=== PATIENT | male | born 1965 | race Caucasian/White ===

== ENCOUNTER 2023-10-17 17:48 | Emergency (ER) | payer MEDICAID, SELFPAY ==
[2023-10-17] VITALS (15 sets, daily range): BP systolic 121–168; BP diastolic 78–110; PULSE 72–168; RESP 22; TEMP 36.6; O2SAT 95–100; BMI 19.5
--- NOTE | 2023-10-17 17:54 | ED_ITS ---
HPI - General Adult General Date Seen: 10/17/23 Chief complaint: Arrhythmia/Palpitations Stated complaint: low bp Time Seen by Provider: 10/17/23 17:52 History of Present Illness HPI narrative: This is a very pleasant 58-year-old male who presents to the ER today with his friend for evaluation of funny heartbeats and concerned that his blood pressure is either too high or too low. Due to patient smokes tobacco and marijuana. He never drinks alcohol. He thin ks some itself is generally healthy and never goes to the doctor. He does not have health insurance. He does not know of any other previous medical history. Does not really sound like he has had checkups but he has never been diagnosed with hypertension, heart disease, arrhythmias, asthma, sleep apnea, kidney or liver disease or any other problems. He does not take any medications. No known drug allergies. He reports that he had an episode a week or to her 3 ago where his heart was pounding and beating in his chest. He felt like his blood pressure might be too high. He had an at home blood pressure cuff in measured it. He says it was higher than normal. He cooled his blood pressure and thought that he might have ?stage II hypertension?. For the past few days his heart has been giving him trouble where he can feel it beating in his chest. It sounds like it has been most of the time for the past couple of days but it does sound like sometimes it goes away. No clear pattern or trigger. He is not actually having any chest pain. No dizziness or fainting. No shortness of breath. No cough. No fever. No swelling in his legs. Today he measures blood pressure and it was again high. His pulse rate was apparently high too. His friend convinced him to come to the ER. Related Data Home Medications Medication Instructions Recorded Confirmed No Known Home Medications 10/17/23 10/17/23 Previous Rx's Medication Instructions Recorded apixaban 5 mg tablet (Eliquis) 5 mg PO BID #60 tabs 10/17/23 metoprolol tartrate 25 mg tablet 25 mg PO BID #60 tabs 10/17/23 Allergies Allergy/AdvReac Type Severity Reaction Status Date / Time No Known Drug Allergies Allergy Verified 10/17/23 18:29 Exam Narrative: Exam Narrative: Constitutional: Appears well-developed and well-nourished. Slender. Alert. Conversant. Non toxic. HENT: Head: Atraumatic. Nose: Nose normal. Mouth/Throat: Oral mucosa is clear and moist. no trismus. Pharynx normal. Tonsils symmetric. No tonsillar enlargement, erythema, or exudate. Eyes: Conjunctivae normal. EOM normal. Pupils equal, round, and reactive to light. No scleral icterus. Neck: Normal range of motion. Neck supple. No tracheal deviation present. No JVD Cardiovascular: Tachycardic, irregularly irregular rhythm. No gallop. No friction rub. No murmur heard. Symmetric radial and PT artery pulses Pulmonary/Chest: Effort normal. No stridor. No respiratory distress. No wheezes. No rales. No rhonchi . No tenderness. Abdominal: Soft. Bowel sounds normal. No distension. No mass. No tenderness. No rebound. No guarding. Musculoskeletal: RUE: Normal range of motion. No tenderness. No deformity LUE: Normal range of motion. No tenderness. No deformity RLE: Normal range of motion. No edema. No tenderness. No deformity LLE: Normal range of motion. No edema. No tenderness. No deformity. Endocrine: No thyromegaly Neurological: Alert and oriented to person, place, and time. Normal strength. CN II-VII intact. No sensory deficit. GCS eye subscore is 4. GCS verbal subscore is 5. GCS motor subscore is 6. Normal coordination Skin: Skin is warm and dry. No rash noted. No pallor. Normal capillary refill. Psychiatric: Normal mood. Normal affect. Const: Vital Signs, click to edit/add: Vital Signs - 24 hr 10/17/23 17:54 10/17/23 18:13 10/17/23 18:14 Temperature 97.8 F Pulse Rate 149 H 145 H Pulse Rate [Pulse Oximeter] 123 H Respiratory Rate 22 Blood Pressure 121/110 H Blood Pressure [Ri ght Upper Arm] 168/78 H Pulse Oximetry 97 98 95 Oxygen Delivery Me thod Room Air 10/17/23 18:15 10/17/23 18:17 10/17/23 18:22 Temperature Pulse Rate 121 H 168 H 106 H Pulse Rate [Pulse Oximeter] Respiratory Rate Blood Pressure 156/99 H 121/93 H Blood Pressure [Ri ght Upper Arm] Pulse Oximetry 97 98 99 Oxygen Delivery Me thod 10/17/23 18:24 10/17/23 18:30 10/17/23 18:32 Temperature Pulse Rate 108 H 136 H 86 Pulse Rate [Pulse Oximeter] Respiratory Rate Blood Pressure 137/89 136/93 H Blood Pressure [Ri ght Upper Arm] Pulse Oximetry 99 98 96 Oxygen Delivery Me thod 10/17/23 18:33 10/17/23 19:03 10/17/23 19:05 Temperature Pulse Rate 88 76 81 Pulse Rate [Pulse Oximeter] Respiratory Rate Blood Pressure 133/96 H Blood Pressure [Ri ght Upper Arm] Pulse Oximetry 96 98 96 Oxygen Delivery Me thod 10/17/23 19:06 10/17/23 19:15 10/17/23 19:17 Temperature Pulse Rate 78 72 79 Pulse Rate [Pulse Oximeter] Respiratory Rate Blood Pressure 150/82 H Blood Pressure [Ri ght Upper Arm] Pulse Oximetry 98 100 98 Oxygen Delivery Me thod Course Vital Signs Vital signs: Initial Vital Signs Temperature 97.8 F 10/17/23 17:54 Temperature Source Temporal Artery Scan 10/17/23 17:54 Pulse Rate 123 H 10/17/23 17:54 Respiratory Rate 10/17/23 17:54 Blood Pressure 168/78 H 10/17/23 17:54 Blood Pressure Mean 108 H 10/17/23 17:54 Pulse Oximetry 97 10/17/23 17:54 Oxygen Delivery Method Room Air 10/17/23 17:54 Vital Signs Temperature 97.8 F 10/17/23 17:54 Pulse Rate 123 H 10/17/23 17:54 Respiratory Rate 10/17/23 17:54 Blood Pressure 168/78 H 10/17/23 17:54 Pulse Oximetry 97 10/17/23 17:54 Oxygen Delivery Method Room Air 10/17/23 17:54 Temperature 97.8 F 10/17/23 17:54 Pulse Rate 79 10/17/23 19:17 Respiratory Rate 10/17/23 17:54 Blood Pressure 150/82 H 10/17/23 19:17 Pulse Oximetry 98 10/17/23 19:17 Oxygen Delivery Method Room Air 10/17/23 17:54 Medications Administered Medications: Generic Name Dose Route Start Last Admin Trade Name Freq PRN Reason Stop Dose Admin Diltiazem HCl 120 mg 10/18/23 09:00 10/17/23 19:12 Diltiazem 120 Mg Cap.Er.24h PO 120 mg DAILY MARNIE Administration Discontinued Medications Generic Name Dose Route Start Last Admin Trade Name Roro ORELLANAN Reason Stop Dose Admin Diltiazem HCl 10 mg 10/17/23 18:29 10/17/23 18:13 Diltiazem 5 Mg/Ml Inj IVP 10/17/23 18:30 10 mg ONCE ONE Administration Diltiazem HCl 10 mg 10/17/23 18:30 10/17/23 18:20 Diltiazem 5 Mg/Ml Inj IVP 10/17/23 18:31 10 mg ONCE ONE Administration Sodium Chloride 1,000 mls @ 1,000 mls/hr 10/17/23 18:30 10/17/23 18:50 0.9 % Sodium Chloride 1000 Ml IV 10/17/23 19:29 Infused .Q1H MARNIE Infusion Medical Decision Making MDM Narrative Medical decision making narrative: This patient presents for evaluation of palpitations and concerned that his blood pressure might be too high. Initial ECG shows atrial fibrillation with rapid ventricular response. Patient by history it sounds like this is been going on at least a few days but probably intermittently for a few weeks or longer . Without a clear time of onset in the last 48 hours this would not be a safe patient for direct electrical cardioversion. We opted for rate control. We administered 2 doses of diltiazem 10 mg IV and with that he had improvement in his rate. He subsequently started having runs of sinus rhythm and then ultimately converted and maintained sinus rhythm here in the ER. Repeat EKG confirms sinus rhythm and shows no dysrhythmogenic abnormality such as WPW, prolonged QT, Brugada syndrome, and no ischemia. Workup does not show any evidence for cardiac ischemia. A broad differential diagnosis was considered including SVT, Atrial fibrillation, ventricular arrhythmia, thyroid disease, acute electrolyte abnormality, drugs/medications, caffeine intake or other stimulants, medication side effect, anemia, heart disease, PE, among others. He is now asymptomatic after he converted back to sinus rhythm. would not hospitalize. Discussed with patient and the patient is in agreement. He will need medications for rate control. Discussed with the on-call solar photovoltaic installer for [facility]. He would recommend metoprolol short-acting , twice daily. His chads 2 Vasc score is 0 which puts him in a lower risk category for stroke. In discussion with Cardiology they still would recommend 1 month of anticoagulation since he may have a tachycardia induced cardiomyopathy which would put him at risk for stroke. Cardiology says that starting warfarin at this time would likely not be beneficial. They would recommend Eliquis. If the patient has not able to afford Eliquis, cardiology would recommend aspirin be initiated until he has his cardiology appointment. Should see cardiology as soon as possible, ideally within 1-2 weeks. Return precautions reviewed. Questions answered with pt, son (phone), and neighbor. Rx eliquis 5mg BID Rx metoprolol 25mg PO BID Lab Data Labs: Lab Results 10/17/23 10/17/23 Range/Units 18:30 18:32 WBC 15.19 H (4.50-11.00) K/uL RBC 5.89 (4.30-5.90) m/uL Hgb 17.9 H (13.5-17.5) gm/dL Hct 52.8 (37.0-53.0) % MCV 90 (80-100) fL MCH 30 (26-34) pg MCHC 34 (32-36) gm/dL RDW Coeff of Vinny 13.1 (11.5-15.5) % Plt Count 384 (140-440) K/uL Neut % (Auto) 64.8 (42.0-72.0) % Lymph % (Auto) 26.3 (20-44) % [place] % (Auto) 7.2 (0.0-11.0) % Eos % (Auto) 1.2 (0.0-7.0) % Baso % (Auto) 0.3 (0.0-3.0) % Neut # (Auto) 9.80 H (1.7-7.0) K/uL Lymph # (Auto) 4.00 H (0.90-2.90) K/uL [place] # (Auto) 1.10 H (0.00-0.90) K/UL Eos # (Auto) 0.20 (0.00-0.50) K/uL Baso # (Auto) 0.00 (0.00-0.30) K/uL Abs Immat Gran (auto) 0.00 (0.00-0.30) K/uL Imm/Tot Granulo (auto) 0.2 % D-Dimer Quant (PE/DVT) 0.30 (0.00-0.50) ug/ml Sodium 138 (135-149) mmol/L Potassium 4.0 (3.6-5.1) mmol/L Chloride 103 (96-114) mmol/L Carbon Dioxide 25 (20-32) mmol/L Anion Gap 10 (7-15) mEq/L BUN 16 (7-30) mg/dL Creatinine 1.0 (0.5-1.5) mg/dL Estimated Creat Clear 69.85 Estimated GFR 88 ml/min Glucose 136 H (60-115) mg/dL Calcium 9.5 (8.4-10.6) mg/dL TSH 1.690 (0.270-4.200) uIU/mL POC Troponin I 0.00 L (0.01-0.04) ng/ml Imaging Data Chest x-ray: Attestation: I have reviewed the pertinent imaging results. My impression: Normal cardiac silhouette. He does have narrow mediastinum which would explain the right axis deviation seen on his 12 lead EKG. No acute pulmonary edema, pneumonia, pneumothorax. Radiologist's impression: IMPRESSION: No acute intrathoracic abnormality identified. ECG Data Attestation: I personally reviewed and interpreted this ECG as follows: Interpretation: Atrial fibrillation with rapid ventricular response. Rate 177 CO NA axis rightward axis deviation. ST segment/T wave: No ST segment elevation or depression. QTc: 439 EKG #2 18:39 Normal sinus rhythm : rate 85 CO 136 QRS axis normal axis ST segment/T wave: No ST segment elevation or depression QTc: 435 Discharge Plan Discharge Clinical Impression: Atrial fibrillation with rapid ventricular response Patient Disposition: Home, Self-Care Condition: Stable Instructions: A-fib (Atrial Fibrillation) (ED) Additional Instructions: As we discussed, please return to the ER right away if you have more episodes of palpitations, any episodes of chest pain or trouble breathing, dizziness or fainting, or if you have any concerns. It is very important for you to follow-up with cardiology for a recheck and with a primary care provider for a checkup. To schedule a cardiology appointment, call [facility] at to schedule an ER follow-up appointment To schedule an appointment with the [facility] call [phone] Please start the new medication-metoprolol, which will keep your pulse rate down . This may also low your blood pressure. You should start on a blood thinning medication to minimize the risk of clots forming in your heart and the risk of stroke from atrial fibrillation. The solar photovoltaic installer recommended a blood thinner called Eliquis. If this per prescription is too expensive, you can start on aspirin 325 mg per day until your insurance is established. Prescriptions: New metoprolol tartrate 25 mg tablet 25 mg PO BID Qty: 60 0RF Eliquis 5 mg tablet 5 mg PO BID Qty: 60 0RF No Action No Known Home Medications Follow Up/Referrals: Provider,Not a Local [Primary Care Provider] - Stand Alone Forms: [employer] Info Instructions
[2023-10-17] MEDS: dilTIAZem 5 MG/ML inj 10 MG IVP ×2 (18:13→18:20)
--- NOTE | 2023-10-17 18:30 | XR_ITS ---
Patient: JF GARCIA Facility:?[facility] Patient ID:?[id number] Site Patient ID:?[id number]. Site :?[id number] Study:?XRay-Chest 2 VIEW-10/17/2023 6:44:35 PM Ordering Physician:HERMELINDO Final Report: INDICATION: atrial fibrillation, dizziness CHEST, PA AND LATERAL Upright PA and lateral radiographs of the chest were performed. Comparison: No previous studies are currently available for comparison. The lungs appear clear and there are no pleural effusions. Heart size and pulmonary vasculature appear normal. Visualized bones show no significant findings. IMPRESSION: No acute intrathoracic abnormality identified. SOCORRO HUMPHRIES MD [employer] Dictated by: Rene Humphries MD @ 10/17/2023 19:21:57 Signed by:?Rene Humphries MD @10/17/2023 7:21:57 PM (Electronic Signature)
[2023-10-17 18:39] LABS: Basophils Percent Auto 0.3 % (0.0-3.0); Eosinophils Percent Auto 1.2 % (0.0-7.0); Hematocrit 52.8 % (37.0-53.0); Hemoglobin* 17.9 gm/dL (13.5-17.5); Immature Granulocytes Pct Auto 0.2 %; Lymphocytes Percent Auto 26.3 % (20-44); Mean Corpuscular HGB Conc 34 gm/dL (32-36); Mean Corpuscular Hemoglobin 30 pg (26-34); Mean Corpuscular Volume 90 fL (80-100); Monocytes Percent Auto 7.2 % (0.0-11.0); Neutrophils Percent Auto 64.8 % (42.0-72.0); Platelet Count* 384 K/uL (140-440); RDW Coefficient of Variation % 13.1 % (11.5-15.5); Red Blood Count 5.89 m/uL (4.30-5.90); White Blood Count* 15.19 K/uL (4.50-11.00)
[2023-10-17 18:48] LABS: Slide Review Reflex No
[2023-10-17] MEDS: 0.9 % SODIUM CHLORIDE 1000 ml 1,000 ML IV (18:49)
[2023-10-17 18:54] LABS: Chloride* 103 mmol/L (96-114); Sodium* 138 mmol/L (135-149)
[2023-10-17 18:57] LABS: Anion Gap 10 mEq/L (7-15); Carbon Dioxide* 25 mmol/L (20-32); Est. Creatinine Clearance* 69.85; Estimated Glomerular Filt Rate 88 ml/min
[2023-10-17 18:58] LABS: Blood Urea Nitrogen* 16 mg/dL (7-30); Calcium* 9.5 mg/dL (8.4-10.6); Glucose* 136 mg/dL (60-115)
[2023-10-17] MEDS: dilTIAZem 120 MG CAP.ER.24H PO (19:12)
== END 2023-10-17 20:04 | disposition home or self-care (01) ==
PROVIDERS: Emergency Provider Emergency Medicine
DX: I48.91 Unspecified atrial fibrillation (principal)
CPT/HCPCS: 36415; 71046; 80048; 84443; 84484; 85025; 85379; 93005; 99284; 99285; A9270; J7030